=== PATIENT | female | born 1930 | race Caucasian/White ===

== ENCOUNTER 2018-07-03 10:40 | Emergency (ER) | payer MEDICAID ==
--- NOTE | 2018-07-03 11:26 | ED Physician Chart ---
ED Chief Complaint/HPI - Patient Information Date Seen:: 07/03/18 Time Seen:: 10:45 Chief Complaint:: Cough History of Present Illness:: onset x 5 days of cough and congestion; no report of trauma, LOC, ALOC, AMS, H/ As, S/T, neck pain, C/P, SOB, Abd. Pain, A/N/V/D/C, fever, chills, or urinary s/ s Allergies:: Allergies Allergy/AdvReac Type Severity Reaction Status Date / Time No Known Allergies Allergy Verified 07/03/18 11:01 Vitals:: Vital Signs - 8 hr 07/03/18 10:48 Temp 98.2 F HR 75 RR 18 BP 138/76 O2 Sat % 95 Historian:: Patient, Family Member Review:: Nurse's Note Reviewed ED Review of Systems - Review of Systems General/Constitutional: No fever, No chills, No weight loss, No weakness, No diaphoresis, No edema, No loss of appetite Skin: No skin lesions, No rash, No bruising Head: No headache, No light-headedness Eyes: No loss of vision, No pain, No diplopia ENT: No earache, Nasal drainage, No sore throat, No tinnitus Neck: No neck pain, No swelling, No thyromegaly, No stiffness, No mass noted Cardio Vascular: No chest pain, No palpitations, No PND, No orthopnea, No edema Pulmonary: No SOB, Cough, No sputum, No wheezing GI: No nausea, No vomiting, No diarrhea, No pain, No melena, No hematochezia, No constipation, No hematemesis G/U: No dysuria, No frequency, No hematuria, No nacturia Rotary Shear Cutter: No vaginal discharge, No abnormal vaginal bleed, No contraction Musculoskeletal: No bone or joint pain, No back pain, No muscle pain Endocrine: No polyuria, No polydipsia Psychiatric: No prior psych history, No depression, No anxiety, No suicidal ideation, No homicidal ideation, No auditory hallucination, No visual hallucination Hematopoietic: No bruising, No lymphadenopathy Allergic/Immuno: No urticaria, No angioedema Neurological: No syncope, No focal symptoms, No weakness, No paresthesia, No headache, No seizure, No dizziness, No confusion, No vertigo ED Past Medical History - Past Medical History Obtainable: Yes Past Medical History: HTN, DM, CAD, CHF Family History: HTN Social History: Non Smoker, No Alcohol, No Drug Use, , Care Facility Surgical History: Cholecystectomy, Hernia Psychiatricy History: None Medication: Reviewed Family Medical History - Family Member Mother History Unknown: Yes ED Physical Exam - Physical Examination General/Constitutional: Awake, Well-developed, well-nourished, Alert, No distress, GCS 15, Non-toxic appearing, Ambulatory Head: Atraumatic Eyes: Lids, conjuctiva normal, PERRL, EOMI Skin: Nl inspection, No rash, No skin lesions, No ecchymosis, Well hydrated, No lymphadenopathy ENMT: External ears, nose nl, TM canals nl, Nasal exam nl, Lips, teeth, gums nl , Oropharynx nl, Tonsils nl Neck: Nontender, Full ROM w/o pain, No JVD, No nuchal rigidity, No bruit, No mass, No stridor Other Neck comments:: supple; no meningeal signs; no cervical tenderness; no bruits Respiratory: Nl effort/Exclusion, Clear to Auscultation, No Wheeze/Rhonchi/Rales Cardio Vascular: No murmur, gallop, rubs, NL S1 S2, Carotid/Femoral/Distal pulses equal bilaterally Other Cardio Vascular comments:: Irregular Irregular Rhythm GI: No tenderness/rebounding/guarding, No organomegaly, No hernia, Normal BS's, Nondistended, No mass/bruits, No McBurney tenderness, Rectum exam nl Other GI comments:: no pulsatile masses : No CVA tenderness Extremities: No tenderness or effusion, Full ROM, normal strength in all extremities, No edema, Normal digits & nails Neuro/Psych: Alert/oriented, DTR's symmetric, Normal sensory exam, Normal motor strength, Judgement/insight normal, Mood normal, Normal gait, No focal deficits Other Neuro/Psych comments:: no focal signs Misc: Normal back, No paraspinal tenderness ED Labs/Radiology/EKG Results - Lab Results Comments:: Reviewed - Radiology Results Comments:: CXR: NAD; CM - EKG Interpretations EKG Time:: 12:16 Rate & Rhythm: 113; Atrial Fibrillation Comments:: non-specific st-t changes ED Septic Shock - . Is Septic Shock (SBP<90, OR Lactate>4 mmol\L) present?: No - <6hrs of presentation: Vital Signs: Vital Signs - 8 hr 07/03/18 10:48 Temp 98.2 F HR 75 RR 18 BP 138/76 O2 Sat % 95 ED Reassessment (Disposition) - Reassessment Reassessment:: pt tolerated po fluids well in ER; pt chose to sign out AMA; pt is asymptomatic upon discharge Reassessment Condition:: Improved - Diagnosis Diagnosis:: Dx: Cough; Congestion; Bronchitis; Hypokalemia; Atrial Fibrillation; Fever; URI - Aftercare/Follow up Instructions Aftercare/Follow-Up Instructions:: Counseled pt regarding lab results/diagnosis & need follow up, Refer to Discharge Instructions, Counseled pt & family regarding lab results/diagnosis & need follow up Medication Prescribed:: Rx: Levaquin 500mg po qd x 10 days; Robitussin DM/Tylenol/Cool Mist Vaporizer; Take all medications as prescribed; Fluids - Patient Disposition Discharge/Transfer:: Against Medical Advice Condition at Disposition:: Stable, Improved (X-Rays Instructions; RTER prn if existing s/s reoccur and/or get worse and/or any other new s/s occur; ACIs given for all above Dx; Refer to Plant Physiologist/Alumina Refinery Operator/Sales Force Administrator MAGY; F/U with PMD Today or prn; RTER prn if concerned)
[2018-07-03 11:40] LABS: % BASOPHILS 0.8 % (0.0-2.0); % EOSINOPHILS 2.3 % (0.0-5.0); % LYMPHOCYTES 28.3 % (20.0-50.0); % MONOCYTES 8.8 % (2.0-10.0); % NEUTROPHILS 59.8 % (40.0-80.0); EOSINOPHILE ABSOLUTE 0.1 Th/cmm (0.1-0.4); HEMATOCRIT 36.5 % (41.0-60); HEMOGLOBIN 12.3 gm/dL (12-16); LYMPHOCYTE ABSOLUTE 1.4 Th/cmm (1.5-3.0); MEAN CELL VOLUME 88.6 fl (81-100); MEAN CORPUSCULAR HEMOGLOBIN 29.8 pg (27.0-31.0); MEAN CORPUSCULAR HGB CONC 33.6 pg (28.0-36.0); MEAN PLATELET VOLUME 7.5 fl; MONOCYTE ABSOLUTE 0.4 Th/cmm (0.3-1.0); PLATELET COUNT 232 Th/cmm (150-400); RED BLOOD COUNT 4.12 Mil/cmm (3.80-5.20); RED CELL DISTRIBUTION WIDTH 14.6 % (11.5-20.0); WHITE BLOOD COUNT 4.9 Th/cmm (4.8-10.8)
[2018-07-03 11:55] LABS: ALB/GLOB RATIO 1.1 (1.0-1.8); ALBUMIN 3.8 gm/dL (3.7-5.3); ALKALINE PHOSPHATASE 55 U/L (34-104); BILIRUBIN,TOTAL 0.4 mg/dL (0.3-1.0); BUN - UREA NITROGEN 11 mg/dL (7-25); CALCIUM SERUM 9.6 mg/dL (8.6-10.3); CARBON DIOXIDE 32.4 mEq/L (21.0-31.0); CHLORIDE 98 mEq/L (98-107); CHOLESTEROL 139 mg/dL (<200); CREATININE - SERUM 0.6 mg/dL (0.6-1.2); CREATININE KINASE 44 U/L (30-223); GLUCOSE 130 mg/dL (70-105); HDL -HIGH DENSITY LIPOPROTEIN 50 mg/dL (23-92); INR 1.04 (0.5-1.4); POTASSIUM SERUM 3.4 mEq/L (3.5-5.1); PROTHROMBIN TIME (TEST) 10.8 SECONDS (9.5-11.5); SGOT 11 U/L (13-39); SGPT/ALT 7 U/L (7-52); SODIUM SERUM 139 mEq/L (136-145); TOTAL PROTEIN,SERUM 7.3 gm/dL (6.0-8.3); TRIGLYCERIDES 84 mg/dL (<150)
[2018-07-03 12:00] LABS: DDIMER QUANT 155 ng/mL (100-400)
[2018-07-03] MEDS ORDERED: Potassium Chloride 20 mEq ER Tab PO ONE ×2 (12:15→12:35)
[2018-07-03] MEDS ORDERED: Levofloxacin 500mg/100mL 500 MG/100 ML BAG IV ONE ×2 (12:15→12:36)
[2018-07-03 12:21] LABS: URINE SOURCE MIDSTREAM
--- NOTE | 2018-07-03 12:21 | Diagnostic Imaging Report ---
CHEST X-RAY: AP view INDICATION: pain COMPARISON: None FINDINGS: There is no focal consolidation or pleural effusions mild chronic lung changes are noted. Cardiomegaly is noted with atherosclerosis. IMPRESSION: Mild chronic lung changes. No focal consolidation identified. No evidence of torrey CHF Cardiomegaly and atherosclerotic vascular disease.
[2018-07-03 12:53] LABS: URINE BILIRUBIN NEGATIVE (NEGATIVE); URINE BLOOD SMALL (NEGATIVE); URINE GLUCOSE (UA) NEGATIVE (NEGATIVE); URINE KETONE NEGATIVE (NEGATIVE); URINE LEUKOCYTE ESTERASE NEGATIVE (NEGATIVE); URINE MICROSCOPIC INDICATED? YES; URINE NITRATE NEGATIVE (NEGATIVE); URINE PROTEIN NEGATIVE (NEGATIVE); URINE UROBILINOGEN 0.2 E.U./dL (0.2 - 1.0)
[2018-07-03 13:09] LABS: URINE CLARITY CLEAR (CLEAR); URINE COLOR YELLOW
[2018-07-03 13:10] LABS: URINE BACTERIA NONE SEEN /hpf (NONE SEEN); URINE EPITHELIAL CELLS OCCASIONAL /lpf (FEW); URINE RBC 0-2 /hpf (0-5); URINE WBC 0-2 /hpf (0-5)
== END 2018-07-03 11:24 | disposition home or self-care (01) ==
LOC: ER 10:40
DX: J40 Bronchitis, not specified as acute or chronic (principal); I48.91 Unspecified atrial fibrillation; E87.6 Hypokalemia; J06.9 Acute upper respiratory infection, unspecified; I11.0 Hypertensive heart disease with heart failure; I50.9 Heart failure, unspecified; E11.9 Type 2 diabetes mellitus without complications; I25.10 Atherosclerotic heart disease of native coronary artery without angina pectoris; Z90.49 Acquired absence of other specified parts of digestive tract
CPT/HCPCS: 99284; 96365; 93005; 71045; 84484; 83880; 36415; 85379; 83605; 85025; 85610; 85730; 81001; 82550; 80053; 80061; 87040 ×2; J1956; Z7502

== ENCOUNTER 2018-12-09 17:30 | Inpatient (IN) | payer MEDICAID ==
--- NOTE | 2018-12-09 18:36 | ED Physician Chart ---
ED Chief Complaint/HPI - Patient Information Date Seen:: 12/09/18 Time Seen:: 17:50 Chief Complaint:: Right Hand Pain History of Present Illness:: onset x 3 days of right hand/right thumb pain, redness, swelling, and erythema; pt denies/no report of trauma, H/As, S/T, neck pain, C/P, SOB, cough, weakness, dizziness, paresthesias, vertigo, Abd. Pain, A/N/V/D/C, fever, chills, or urinary s/s Allergies:: Allergies Allergy/AdvReac Type Severity Reaction Status Date / Time No Known Allergies Allergy Verified 07/03/18 11:01 Vitals:: Vital Signs - 8 hr 12/09/18 17:51 Temp 98.6 F HR 100 RR 16 BP 121/68 O2 Sat % 95 Historian:: Patient, Family Member Review:: Nurse's Note Reviewed, Old Chart Reviewed <Daryl Morales - Last Filed: 12/09/18 18:38> - Patient Information Allergies:: Allergies Allergy/AdvReac Type Severity Reaction Status Date / Time No Known Allergies Allergy Verified 07/03/18 11:01 Vitals:: Vital Signs - 8 hr 12/09/18 17:51 Temp 98.6 F HR 100 RR 16 BP 121/68 O2 Sat % 95 <Hunter Deutsch - Last Filed: 12/09/18 23:24> ED Review of Systems - Review of Systems General/Constitutional: No fever, No chills, No weight loss, No weakness, No diaphoresis, No edema, No loss of appetite Skin: No skin lesions, No rash, No bruising Head: No headache, No light-headedness Eyes: No loss of vision, No pain, No diplopia ENT: No earache, No nasal drainage, No sore throat, No tinnitus Neck: No neck pain, No swelling, No thyromegaly, No stiffness, No mass noted Cardio Vascular: No chest pain, No palpitations, No PND, No orthopnea, No edema Pulmonary: No SOB, No cough, No sputum, No wheezing GI: No nausea, No vomiting, No diarrhea, No pain, No melena, No hematochezia, No constipation, No hematemesis G/U: No dysuria, No frequency, No hematuria, No nacturia Manifold Builder: No vaginal discharge, No abnormal vaginal bleed, No contraction Musculoskeletal: No bone or joint pain, No back pain, No muscle pain Endocrine: Polyuria, Polydipsia Psychiatric: No prior psych history, No depression, No anxiety, No suicidal ideation, No homicidal ideation, No auditory hallucination, No visual hallucination Hematopoietic: No bruising, No lymphadenopathy Allergic/Immuno: No urticaria, No angioedema Neurological: No syncope, No focal symptoms, No weakness, No paresthesia, No headache, No seizure, No dizziness, No confusion, No vertigo <Daryl Morales - Last Filed: 12/09/18 18:38> ED Past Medical History - Past Medical History Obtainable: Yes Past Medical History: HTN, DM, CAD, CHF, DVT/PE, Dyslipidemia Family History: Diabetes Melitus, HTN Social History: Non Smoker, No Alcohol, No Drug Use, Surgical History: None Psychiatricy History: None Medication: Reviewed <Daryl Morales Last Filed: 12/09/18 18:38> Family Medical History - Family Member Mother History Unknown: Yes Living Status: <Daryl Morales Last Filed: 12/09/18 18:38> ED Physical Exam - Physical Examination General/Constitutional: Awake, Well-developed, well-nourished, Alert, No distress, GCS 15, Non-toxic appearing, Ambulatory Head: Atraumatic Eyes: Lids, conjuctiva normal, PERRL, EOMI Skin: Nl inspection, No rash, No skin lesions, No ecchymosis, Well hydrated, No lymphadenopathy Other Skin comments:: + Right Hand/Right Thumb Cellulitis; good NV functions ENMT: External ears, nose nl, TM canals nl, Nasal exam nl, Lips, teeth, gums nl , Oropharynx nl, Tonsils nl Neck: Nontender, Full ROM w/o pain, No JVD, No nuchal rigidity, No bruit, No mass, No stridor Other Neck comments:: supple; no meningeal signs; no cervical tenderness; no bruits Respiratory: Nl effort/Exclusion, Clear to Auscultation, No Wheeze/Rhonchi/Rales Cardio Vascular: RRR, No murmur, gallop, rubs, NL S1 S2, Carotid/Femoral/Distal pulses equal bilaterally GI: No tenderness/rebounding/guarding, No organomegaly, No hernia, Normal BS's, Nondistended, No mass/bruits, No McBurney tenderness Other GI comments:: no pulsatile masses : No CVA tenderness Extremities: No tenderness or effusion, Full ROM, normal strength in all extremities, No edema, Normal digits & nails Neuro/Psych: Alert/oriented, DTR's symmetric, Normal sensory exam, Normal motor strength, Judgement/insight normal, Mood normal, Normal gait, No focal deficits Misc: Normal back, No paraspinal tenderness <Daryl Morales - Last Filed: 12/09/18 18:38> ED Labs/Radiology/EKG Results - Lab Results Results: Laboratory Tests 12/09/18 12/09/18 12/09/18 19:10 19:10 19:10 WBC 7.4 RBC 4.03 Hgb 11.5 L Hct 35.7 L MCV 88.7 MCH 28.6 MCHC Differential 32.2 RDW 14.2 Plt Count 258 MPV 7.8 Neutrophils % 67.0 Lymphocytes % 23.4 Monocytes % 8.2 Eosinophils % 1.1 Basophils % 0.3 PT 10.9 INR 1.05 PTT (Actin FS) 26.8 Sodium 138 Potassium 3.3 L Chloride 99 Carbon Dioxide 29.5 Anion Gap 12.8 BUN 14 Creatinine 0.7 Est GFR ( Amer) TNP Est GFR (Non-Af Amer) TNP BUN/Creatinine Ratio 20.0 Glucose 166 H Whole Bld Lactic Acid Calcium 9.0 Total Bilirubin 0.4 AST 10 L ALT 6 L Alkaline Phosphatase 58 Creatine Kinase 30 Troponin I Total Protein 6.9 Albumin 3.6 L Globulin 3.3 Albumin/Globulin Ratio 1.1 Urine Source Urine Color Urine Clarity Urine pH Ur Specific [place] Urine Protein Urine Glucose (UA) Urine Ketones Urine Blood Urine Nitrate Urine Bilirubin Urine Urobilinogen Ur Leukocyte Esterase Urine RBC Urine WBC Ur Epithelial Cells Urine Bacteria 12/09/18 12/09/18 19:10 20:47 WBC RBC Hgb Hct MCV MCH MCHC Differential RDW Plt Count MPV Neutrophils % Lymphocytes % Monocytes % Eosinophils % Basophils % PT INR PTT (Actin FS) Sodium Potassium Chloride Carbon Dioxide Anion Gap BUN Creatinine Est GFR ( Amer) Est GFR (Non-Af Amer) BUN/Creatinine Ratio Glucose Whole Bld Lactic Acid 1.69 Calcium Total Bilirubin AST ALT Alkaline Phosphatase Creatine Kinase Troponin I 0.01 Total Protein Albumin Globulin Albumin/Globulin Ratio Urine Source [place] Urine Color YELLOW Urine Clarity HAZY Urine pH 7.0 Ur Specific [place] 1.015 Urine Protein NEGATIVE Urine Glucose (UA) NEGATIVE Urine Ketones NEGATIVE Urine Blood MODERATE H Urine Nitrate POSITIVE H Urine Bilirubin NEGATIVE Urine Urobilinogen 0.2 Ur Leukocyte Esterase SMALL H Urine RBC 5-10 H Urine WBC 2-5 Ur Epithelial Cells FEW Urine Bacteria MANY H Laboratory Last Values WBC 7.4 Th/cmm (4.8-10.8) 12/09/18 19:10 RBC 4.03 Mil/cmm (3.80-5.20) 12/09/18 19:10 Hgb 11.5 gm/dL (12-16) L 12/09/18 19:10 Hct 35.7 % (41.0-60) L 12/09/18 19:10 MCV 88.7 fl (81-100) 12/09/18 19:10 MCH 28.6 pg (27.0-31.0) 12/09/18 19:10 MCHC Differential 32.2 pg (28.0-36.0) 12/09/18 19:10 RDW 14.2 % (11.5-20.0) 12/09/18 19:10 Plt Count 258 Th/cmm (150-400) 12/09/18 19:10 MPV 7.8 fl 12/09/18 19:10 Neutrophils % 67.0 % (40.0-80.0) 12/09/18 19:10 Lymphocytes % 23.4 % (20.0-50.0) 12/09/18 19:10 Monocytes % 8.2 % (2.0-10.0) 12/09/18 19:10 Eosinophils % 1.1 % (0.0-5.0) 12/09/18 19:10 Basophils % 0.3 % (0.0-2.0) 12/09/18 19:10 PT 10.9 SECONDS (9.5-11.5) 12/09/18 19:10 INR 1.05 (0.5-1.4) 12/09/18 19:10 PTT (Actin FS) 26.8 SECONDS (26.0-38.0) 05/13/19 19:10 Sodium 138 mEq/L (136-145) 12/09/18 19:10 Potassium 3.3 mEq/L (3.5-5.1) L 12/09/18 19:10 Chloride 99 mEq/L (98-107) 12/09/18 19:10 Carbon Dioxide 29.5 mEq/L (21.0-31.0) 12/09/18 19:10 Anion Gap 12.8 (7.0-16.0) 12/09/18 19:10 BUN 14 mg/dL (7-25) 12/09/18 19:10 Creatinine 0.7 mg/dL (0.6-1.2) 12/09/18 19:10 Est GFR ( Amer) TNP 12/09/18 19:10 Est GFR (Non-Af Amer) TNP 12/09/18 19:10 BUN/Creatinine Ratio 20.0 12/09/18 19:10 Glucose 166 mg/dL (70-105) H 12/09/18 19:10 Whole Bld Lactic Acid 1.69 mmol/L (0.60-1.99) 12/09/18 19:10 Calcium 9.0 mg/dL (8.6-10.3) 12/09/18 19:10 Total Bilirubin 0.4 mg/dL (0.3-1.0) 12/09/18 19:10 AST 10 U/L (13-39) L 12/09/18 19:10 ALT 6 U/L (7-52) L 12/09/18 19:10 Alkaline Phosphatase 58 U/L (34-104) 12/09/18 19:10 Creatine Kinase 30 U/L (30-223) 12/09/18 19:10 Troponin I 0.01 ng/mL (0.01-0.05) 12/09/18 19:10 Total Protein 6.9 gm/dL (6.0-8.3) 12/09/18 19:10 Albumin 3.6 gm/dL (3.7-5.3) L 12/09/18 19:10 Globulin 3.3 gm/dL 12/09/18 19:10 Albumin/Globulin Ratio 1.1 (1.0-1.8) 12/09/18 19:10 Urine Source [place] 12/09/18 20:47 Urine Color YELLOW 12/09/18 20:47 Urine Clarity HAZY (CLEAR) 12/09/18 20:47 Urine pH 7.0 (4.6 - 8.0) 12/09/18 20:47 Ur Specific [place] 1.015 (1.005-1.030) 12/09/18 20:47 Urine Protein NEGATIVE mg/dL (NEGATIVE) 12/09/18 20:47 Urine Glucose (UA) NEGATIVE mg/dL (NEGATIVE) 12/09/18 20:47 Urine Ketones NEGATIVE mg/dL (NEGATIVE) 12/09/18 20:47 Urine Blood MODERATE (NEGATIVE) H 12/09/18 20:47 Urine Nitrate POSITIVE (NEGATIVE) H 12/09/18 20:47 Urine Bilirubin NEGATIVE (NEGATIVE) 12/09/18 20:47 Urine Urobilinogen 0.2 E.U./dL (0.2 - 1.0) 12/09/18 20:47 Ur Leukocyte Esterase SMALL (NEGATIVE) H 12/09/18 20:47 Urine RBC 5-10 /hpf (0-5) H 12/09/18 20:47 Urine WBC 2-5 /hpf (0-5) 12/09/18 20:47 Ur Epithelial Cells FEW /lpf (FEW) 12/09/18 20:47 Urine Bacteria MANY /hpf (NONE SEEN) H 12/09/18 20:47 Pending lab results to be followed by admitting attending physician Dr. Montilla: blood cultures, urine culture. - Radiology Results Results: R thumb X-ray: Based on my interpretation, degenerative changes with bone spurs at PIP joint. Official report is pending. R hand X-ray: Based on my interpretation, degenerative changes with chronic changes noticed in all PIP and DIP joints. Official report is pending. <Hunter Deutsch - Last Filed: 12/09/18 23:24> ED Septic Shock - . Is Septic Shock (SBP<90, OR Lactate>4 mmol\L) present?: No - <6hrs of presentation: Vital Signs: Vital Signs - 8 hr 12/09/18 17:51 Temp 98.6 F HR 100 RR 16 BP 121/68 O2 Sat % 95 <Daryl Morales - Last Filed: 12/09/18 18:38> - <6hrs of presentation: Vital Signs: Vital Signs - 8 hr 12/09/18 17:51 Temp 98.6 F HR 100 RR 16 BP 121/68 O2 Sat % 95 <Hunter Deutsch - Last Filed: 12/09/18 23:24> ED Reassessment (Disposition) - Reassessment Reassessment Condition:: Improved - Diagnosis Diagnosis:: Right Hand/Right Thumb Cellulitis; HTN; DM <Daryl Morales - Last Filed: 12/09/18 18:38> - Reassessment Reassessment:: [address] Morales to follow on lab results as well as X-rays of R thumb and R hand. Pt is then to be admitted for further inpatient care. Lab results just became available. Lab and X-ray findings have been reviewed with pt. Management plan has been discussed. Interpretation is provided by nursing staff member Mirna. Per pt's request, her daughter Jaqueline is also at bedside. 0 Case was discussed with Dr. Warner with pertinent info reviewed. Pt is to be admitted to [facility] under his care. - Diagnosis Diagnosis:: Urinary tract infection Mild hypokalemia. Mild anemia. - Patient Disposition Admitted to:: Med/Surg Admitting Medical Physician:: Bull Warner Time:: 22:20 Condition at Disposition:: Stable, Improved <Hunter Deutsch - Last Filed: 12/09/18 23:24>
[2018-12-09] MEDS ORDERED: cefTRIAXone 1 GM in Sodium Chloride 0.9% 50 ML IV ONE (18:42)
[2018-12-09 19:32] LABS: INR 1.05 (0.5-1.4); PROTHROMBIN TIME (TEST) 10.9 SECONDS (9.5-11.5)
[2018-12-09 19:38] LABS: ALB/GLOB RATIO 1.1 (1.0-1.8); ALBUMIN 3.6 gm/dL (3.7-5.3); ALKALINE PHOSPHATASE 58 U/L (34-104); ANION GAP 12.8 (7.0-16.0); BILIRUBIN,TOTAL 0.4 mg/dL (0.3-1.0); BUN - UREA NITROGEN 14 mg/dL (7-25); CARBON DIOXIDE 29.5 mEq/L (21.0-31.0); CHLORIDE 99 mEq/L (98-107); CREATININE - SERUM 0.7 mg/dL (0.6-1.2); CREATININE KINASE 30 U/L (30-223); GLUCOSE 166 mg/dL (70-105); POTASSIUM SERUM 3.3 mEq/L (3.5-5.1); SGOT 10 U/L (13-39); SGPT/ALT 6 U/L (7-52); SODIUM SERUM 138 mEq/L (136-145); TOTAL PROTEIN,SERUM 6.9 gm/dL (6.0-8.3)
[2018-12-09 19:39] LABS: % BASOPHILS 0.3 % (0.0-2.0); % EOSINOPHILS 1.1 % (0.0-5.0); % LYMPHOCYTES 23.4 % (20.0-50.0); % MONOCYTES 8.2 % (2.0-10.0); EOSINOPHILE ABSOLUTE 0.1 Th/cmm (0.1-0.4); HEMATOCRIT 35.7 % (41.0-60); HEMOGLOBIN 11.5 gm/dL (12-16); LYMPHOCYTE ABSOLUTE 1.7 Th/cmm (1.5-3.0); MEAN CELL VOLUME 88.7 fl (81-100); MEAN CORPUSCULAR HEMOGLOBIN 28.6 pg (27.0-31.0); MEAN CORPUSCULAR HGB CONC 32.2 pg (28.0-36.0); MEAN PLATELET VOLUME 7.8 fl; MONOCYTE ABSOLUTE 0.6 Th/cmm (0.3-1.0); PLATELET COUNT 258 Th/cmm (150-400); RED BLOOD COUNT 4.03 Mil/cmm (3.80-5.20); RED CELL DISTRIBUTION WIDTH 14.2 % (11.5-20.0); WHITE BLOOD COUNT 7.4 Th/cmm (4.8-10.8)
[2018-12-09 19:40] LABS: TROP I 0.01 ng/mL (0.01-0.05)
[2018-12-09 20:51] LABS: URINE SOURCE MIDSTREAM
[2018-12-09 20:55] LABS: URINE BILIRUBIN NEGATIVE (NEGATIVE); URINE BLOOD MODERATE (NEGATIVE); URINE GLUCOSE (UA) NEGATIVE (NEGATIVE); URINE KETONE NEGATIVE (NEGATIVE); URINE LEUKOCYTE ESTERASE SMALL (NEGATIVE); URINE MICROSCOPIC INDICATED? YES; URINE NITRATE POSITIVE (NEGATIVE); URINE PROTEIN NEGATIVE (NEGATIVE); URINE UROBILINOGEN 0.2 E.U./dL (0.2 - 1.0)
[2018-12-09 21:02] LABS: URINE CLARITY HAZY (CLEAR); URINE COLOR YELLOW
[2018-12-09 21:05] LABS: URINE BACTERIA MANY /hpf (NONE SEEN); URINE EPITHELIAL CELLS FEW /lpf (FEW)
[2018-12-09] MEDS ORDERED: Potassium Chloride 20 mEq ER Tab PO ONE ×2 (21:08→21:12)
[2018-12-09 23:55] VITALS: BP 134/76
[2018-12-10] MEDS: INSULIN LISPRO SLIDING SCALE 100 UNITS/ML UNIT SUBQ SCH ×4 (06:29→21:06)
[2018-12-10] MEDS: Sodium Chloride 0.9% 1,000 ML IV SCH ×2 (06:31→16:25)
[2018-12-10] MEDS ORDERED: Diltiazem CD 120 mg 24H PO SCH (09:00)
[2018-12-10] MEDS ORDERED: cefTRIAXone 1 GM in Sodium Chloride 0.9% 50 ML IV SCH ×2 (09:00→18:00)
[2018-12-10] MEDS: Apixaban 5 MG TABLET PO SCH ×2 (10:00→16:20)
--- NOTE | 2018-12-10 10:49 | Diagnostic Imaging Report ---
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 There is no evidence for acute fracture dislocation. Superimposed osteoporosis. No soft tissue swelling. IMPRESSION: degenerative osteoarthritis right hand
--- NOTE | 2018-12-10 10:51 | Diagnostic Imaging Report ---
Exam: Right thumb HISTORY: Pain Findings: Multiple views of right thumb reviewed. The study demonstrates degenerative osteoarthritis of the distal interphalangeal joint with ossific spurring. Significant decrease in joint space is noted. There is evidence of nondisplaced fracture of distal end toe proximal phalanx right thumb. IMPRESSION: extensive osteoarthritis right thumb, distal interphalangeal joint. Nondisplaced fracture distal end proximal phalanx right thumb.
--- NOTE | 2018-12-10 13:24 | History and Physical ---
History of Present Illness - HPI Chief Complaint: Right hand pain and edema HPI: Patient refer that she has having pain and edema of right hand. reason why she came to ER. During ER evaluation was found edema, redness and pain in right hand and UTI. Vital Signs: Last Vital Signs Temp 98.1 F 12/10/18 12:00 Pulse 65 12/10/18 12:00 Resp 18 12/10/18 12:00 BP 126/71 12/10/18 12:00 Pulse Ox 91 12/10/18 12:00 Past Medical History Cardiovascular: Report: AFIB, CAD, CHF, HTN Pulmonary: Report: No Pertinent Hx CORNER CUTTER: Report: No Pertinent Hx GI: Report: No Pertinent Hx Psych: Report: No Pertinent Hx Musculoskeletal: Report: Weakness Rheumatologic: Report: Rheumatoid Arthritis Infectious Disease: Report: No Pertinent Hx Renal/: Report: No Pertinent Hx Endocrine: Report: No Pertinent Hx Dermatology: Report: No Pertinent Hx - Past Surgical History Past Surgical History: No pertinent Hx Family Medical History - Family Member Mother History Unknown: Yes Living Status: Social History Smoke: No Alcohol: None Drugs: None Lives: With Family Domestic Violence: Negative - Medications Home Medications: Home Medication Medication Instructions Recorded Type Apixaban [Eliquis] 5 mg PO BID 07/03/18 History Cilostazol 100 mg PO DAILY 07/03/18 History Diltiazem HCl [Diltiazem 24Hr ER] 240 mg PO DAILY 07/03/18 History Furosemide 20 mg PO DAILY 07/03/18 History Guaifenesin DM [Robitussin DM] 10 ml PO Q6HR PRN #1 udc 07/03/18 Rx Levofloxacin [Levaquin] 500 mg PO DAILY 10 Days #10 tab 07/03/18 Rx metFORMIN [Glucophage] 500 mg PO DAILY 07/03/18 History - Allergies Allergies/Adverse Reactions: Allergies Allergy/AdvReac Type Severity Reaction Status Date / Time No Known Allergies Allergy Verified 07/03/18 11:01 Review of Systems - Review of Systems Constitutional: Report: Weakness Eyes: Report: No Significant ENT: Report: No Significant Respiratory: Report: No Significant Cardiovascular: Report: No Significant Gastrointestinal: Report: No Significant Genitourinary: Report: No Significant Musculoskeletal: Report: Hand Pain Skin: Report: No Significant Neurological: Report: No Significant Physical Exam - Physical Exam HEENT: Report: Ears Nose Throat within normal limits Neck: Report: Within normal limits Cardiovascular Systems: Report: Irregular rhythm was noted Respiratory: Report: Breath Sounds are within normal limits Abdomen: Report: Non-tender to palpation Back: Report: Inspection of back is within normal limits. Extremities: Report: Other (Edema and pain at movement of right thumb.) Neuro/Psych: Report: Mood affect is within normal limits - Lab Results All Lab Results last 24 hours: Laboratory Results - last 24 hr 12/09/18 12/09/18 12/09/18 19:10 19:10 19:10 WBC 7.4 RBC 4.03 Hgb 11.5 L Hct 35.7 L MCV 88.7 MCH 28.6 MCHC Differential 32.2 RDW 14.2 Plt Count 258 MPV 7.8 Neutrophils % 67.0 Lymphocytes % 23.4 Monocytes % 8.2 Eosinophils % 1.1 Basophils % 0.3 PT 10.9 INR 1.05 PTT (Actin FS) 26.8 Sodium 138 Potassium 3.3 L Chloride 99 Carbon Dioxide 29.5 Anion Gap 12.8 BUN 14 Creatinine 0.7 Est GFR ( Amer) TNP Est GFR (Non-Af Amer) TNP BUN/Creatinine Ratio 20.0 Glucose 166 H POC Glucose Whole Bld Lactic Acid Calcium 9.0 Total Bilirubin 0.4 AST 10 L ALT 6 L Alkaline Phosphatase 58 Creatine Kinase 30 Troponin I Total Protein 6.9 Albumin 3.6 L Globulin 3.3 Albumin/Globulin Ratio 1.1 Urine Source Urine Color Urine Clarity Urine pH Ur Specific [place] Urine Protein Urine Glucose (UA) Urine Ketones Urine Blood Urine Nitrate Urine Bilirubin Urine Urobilinogen Ur Leukocyte Esterase Urine RBC Urine WBC Ur Epithelial Cells Urine Bacteria 12/09/18 12/09/18 12/10/18 19:10 20:47 06:12 WBC RBC Hgb Hct MCV MCH MCHC Differential RDW Plt Count MPV Neutrophils % Lymphocytes % Monocytes % Eosinophils % Basophils % PT INR PTT (Actin FS) Sodium Potassium Chloride Carbon Dioxide Anion Gap BUN Creatinine Est GFR ( Amer) Est GFR (Non-Af Amer) BUN/Creatinine Ratio Glucose POC Glucose 125 H Whole Bld Lactic Acid 1.69 Calcium Total Bilirubin AST ALT Alkaline Phosphatase Creatine Kinase Troponin I 0.01 Total Protein Albumin Globulin Albumin/Globulin Ratio Urine Source [place] Urine Color YELLOW Urine Clarity HAZY Urine pH 7.0 Ur Specific [place] 1.015 Urine Protein NEGATIVE Urine Glucose (UA) NEGATIVE Urine Ketones NEGATIVE Urine Blood MODERATE H Urine Nitrate POSITIVE H Urine Bilirubin NEGATIVE Urine Urobilinogen 0.2 Ur Leukocyte Esterase SMALL H Urine RBC 5-10 H Urine WBC 2-5 Ur Epithelial Cells FEW Urine Bacteria MANY H 12/10/18 11:34 WBC RBC Hgb Hct MCV MCH MCHC Differential RDW Plt Count MPV Neutrophils % Lymphocytes % Monocytes % Eosinophils % Basophils % PT INR PTT (Actin FS) Sodium Potassium Chloride Carbon Dioxide Anion Gap BUN Creatinine Est GFR ( Amer) Est GFR (Non-Af Amer) BUN/Creatinine Ratio Glucose POC Glucose 128 H Whole Bld Lactic Acid Calcium Total Bilirubin AST ALT Alkaline Phosphatase Creatine Kinase Troponin I Total Protein Albumin Globulin Albumin/Globulin Ratio Urine Source Urine Color Urine Clarity Urine pH Ur Specific [place] Urine Protein Urine Glucose (UA) Urine Ketones Urine Blood Urine Nitrate Urine Bilirubin Urine Urobilinogen Ur Leukocyte Esterase Urine RBC Urine WBC Ur Epithelial Cells Urine Bacteria - Assessment Assessment: Patient is awake, alert, calm in no acute distress. Dx: Thumb fracture, UTI, HTN , CHF, A-Fib, Osteoarthrosis. - Plan Plan: Patient in IV NS, IV AB, pain control, continue with home meds. Consult with Ortho requested.
--- NOTE | 2018-12-12 10:26 | Discharge Summary ---
General Discharge Summary - Discharge Summary Discharge Date: 12/11/18 Disposition: Discharge/Transfered to SNF Home Medications: Home Medication Medication Instructions Recorded Type Apixaban [Eliquis] 5 mg PO BID 07/03/18 History Cilostazol 100 mg PO DAILY 07/03/18 History Diltiazem HCl [Diltiazem 24Hr ER] 240 mg PO DAILY 07/03/18 History Furosemide 20 mg PO DAILY 07/03/18 History Guaifenesin DM [Robitussin DM] 10 ml PO Q6HR PRN #1 udc 07/03/18 Rx Levofloxacin [Levaquin] 500 mg PO DAILY 10 Days #10 tab 07/03/18 Rx metFORMIN [Glucophage] 500 mg PO DAILY 07/03/18 History Acetaminophen [Tylenol] 650 mg PO Q6H PRN tab 12/10/18 Rx Consults and Follow-Up: DANNY KHANNA [Other] Bull Warner [Primary Care Provider] - Instructions: Fall Prevention and Home Safety, [id number], Osteoarthritis, Urinary Tract Infection, [id number]
== END 2018-12-10 23:22 | DRG 342 ==
LOC: ER 17:30 → MSI 22:50
PROVIDERS: ADMIT General Practice; ATTEND General Practice
DX: M84.344A Stress fracture, right finger(s), initial encounter for fracture (principal); I48.91 Unspecified atrial fibrillation; I50.9 Heart failure, unspecified; I11.0 Hypertensive heart disease with heart failure; E11.9 Type 2 diabetes mellitus without complications; E78.5 Hyperlipidemia, unspecified; D64.9 Anemia, unspecified; N39.0 Urinary tract infection, site not specified; M19.90 Unspecified osteoarthritis, unspecified site; I25.10 Atherosclerotic heart disease of native coronary artery without angina pectoris; E87.6 Hypokalemia; M06.9 Rheumatoid arthritis, unspecified; X58.XXXA Exposure to other specified factors, initial encounter; Y93.89 Activity, other specified; Y92.89 Other specified places as the place of occurrence of the external cause; Y99.8 Other external cause status; Z86.711 Personal history of pulmonary embolism; Z86.718 Personal history of other venous thrombosis and embolism; Z79.01 Long term (current) use of anticoagulants; Z79.84 Long term (current) use of oral hypoglycemic drugs
CPT/HCPCS: 36415-UA; 73130-TC-RT; 73140-TC-F5; 80053-TC; 81001-TC; 82550-TC; 82948-90; 83605; 84484-TC; 85025-TC; 85610-TC; 85730-TC; 87086-90; J0696; J3370; J7030; Z7610